=== PATIENT | female | born 1950 | race Two or more races ===

== ENCOUNTER 2017-09-16 09:08 | Day surgery (SDC) | payer OTHER ==
[2017-09-15 10:46] VITALS: BMI 36.8
[~2017-09-16 09:08] MED LIST: ACETAMINOPHEN 325 MG TABLET (FP) PO PRN
[2017-09-16] MEDS ORDERED: CYCLOPENTOLATE HCL 1% OPHTH SOLN 2 ML BOTTLE ONE (09:26)
[2017-09-16] MEDS ORDERED: OFLOXACIN 0.3% OPHTHALMIC SOLUTION 5 ML BOTTLE ONE (09:26)
[2017-09-16] MEDS ORDERED: PHENYLEPHRINE 2.5% OPHTH SOLN 15 ML BOTTLE ONE (09:26)
[2017-09-16] MEDS ORDERED: FLURBIPROFEN 0.03% OPHTH SOLN 2.5 ML BOTTLE ONE (09:26)
[2017-09-16] MEDS ORDERED: TROPICAMIDE 1% OPHTH SOLN 15 ML BOTTLE ONE (09:26)
[2017-09-16] MEDS: TROPICAMIDE 1% OPHTH SOLN 15 ML BOTTLE OP SCH ×3 (09:50→10:01)
[2017-09-16] MEDS: FLURBIPROFEN 0.03% OPHTH SOLN 2.5 ML BOTTLE OP SCH ×3 (09:50→10:02)
[2017-09-16] MEDS: PHENYLEPHRINE 2.5% OPHTH SOLN 15 ML BOTTLE OP SCH ×3 (09:50→10:02)
[2017-09-16] MEDS: CYCLOPENTOLATE HCL 1% OPHTH SOLN 2 ML BOTTLE OP SCH ×3 (09:50→10:02)
[2017-09-16] MEDS: OFLOXACIN 0.3% OPHTHALMIC SOLUTION 5 ML BOTTLE OP SCH ×3 (09:50→10:02)
[2017-09-16] MEDS ORDERED: LIDOCAINE HCL/PF 1% SDV 5ML VIAL ONE (11:14)
[2017-09-16] MEDS ORDERED: EPINEPHrine/PF 1 MG/1 ML (1:1,000) AMPULE ONE (11:14)
[2017-09-16] MEDS ORDERED: TETRACAINE 0.5% OPHTH SOLN 2 ML BOTTLE ONE (11:14)
[2017-09-16] MEDS ORDERED: MIDAZOLAM HCL 2 MG/2 ML SINGLE DOSE VIAL ONE (11:37)
[2017-09-16] MEDS ORDERED: TETRACAINE 0.5% OPHTH SOLN 2 ML BOTTLE TP ONE (12:00)
[2017-09-16] MEDS ORDERED: LIDOCAINE HCL 1% PRESERVATIVE FREE - 30ML VIAL IO ONE (12:09)
[2017-09-16] MEDS ORDERED: CHONDROITIN SU A/HYALUR SOD 1 KIT IO ONE (12:10)
[2017-09-16] MEDS ORDERED: TRYPAN BLUE 0.5 ML DISP.SYRIN IO ONE (12:12)
[2017-09-16] MEDS ORDERED: TRYPAN BLUE 0.5 ML DISP.SYRIN ONE (12:20)
[2017-09-16] MEDS ORDERED: EPINEPHrine/PF 1 MG/1 ML (1:1,000) AMPULE SQ ONE (12:20)
[2017-09-16] MEDS ORDERED: CHONDROITIN SU A/HYALUR SOD 1 KIT ONE (12:20)
[2017-09-16 13:29] VITALS: BP 126/66; PULSE 67; TEMP 97.7
--- NOTE | 2017-09-16 13:56 | SPEC ---
DATE OF OPERATION: DATE OF DICTATION: 09/16/2017 PREOPERATIVE DIAGNOSIS: Cataract, right eye. POSTOPERATIVE DIAGNOSIS: Cataract, right eye. PROCEDURE: Phacoemulsification of right cataract with capsular staining with Trypan blue and posterior chamber intraocular lens implantation, lens used [id number], 23.5-diopter power, serial number [id number]. SURGEON: Joaquin English MD ANESTHESIA: Topical, MAC. COMPLICATIONS: None. PROCEDURE: The patient was brought to the operating room and correctly identified along with the operative site as well as correct intraocular lens kebede. The patient was then prepped and draped in the usual sterile fashion including 5% Betadine solution in the conjunctival sac and an eyelid drape. An eyelid speculum was then placed into the operative eye. The eye was inspected and a poor red reflex was noted. A paracentesis port was created and 0.5 mL of intracameral preservative-free lidocaine 1% was given. Beneath an air bubble, the capsule was then stained with Trypan blue. The Trypan blue was then irrigated from the eye with balanced salt solution (BBS). Viscoelastic was injected to inflate the anterior chamber. A temporal clear corneal would was created. A continuous circular capsulorrhexis was performed. The nucleus was then hydrodissected and hydrodelineated was BSS and removed with phacoemulsification via [id number]-[id number]-[id number] approach. The remaining cortical material was irrigated and aspirated from the eye. Viscoelastic was injected in the anterior chamber to inflate the capsular bag. The intraocular lens was then injected into the bag. The viscoelastic was irrigated and aspirated from the eye. All wounds were tested and found to be watertight. No suture was placed. The intraocular lens was noted to be well centered and covered by the anterior capsular border. Topical vancomycin was given. The eye was patched and shielded. The patient was discharged from the operating room in stable condition. JOAQUIN ENGLISH M.D. [id number]
== END 2017-09-16 13:44 | disposition home or self-care (01) ==
LOC: JASU-SURG 09:08
PROVIDERS: ATTEND Ophthalmology
PROC: 08RJ3JZ Replacement of Right Lens with Synthetic Substitute, Percutaneous Approach (ICD-10-PCS; principal; 2017-09-16 11:00)
DX: H26.9 Unspecified cataract (principal)
CPT/HCPCS: 82962

== ENCOUNTER 2017-10-14 08:33 | Day surgery (SDC) | payer OTHER ==
[2017-10-09 10:35] VITALS: BMI 36.8
[~2017-10-14 08:33] MED LIST changes: +FLURBIPROFEN 0.03% OPHTH SOLN 2.5 ML BOTTLE OP SCH
[2017-10-14] MEDS ORDERED: CYCLOPENTOLATE HCL 1% OPHTH SOLN 2 ML BOTTLE ONE (09:04)
[2017-10-14] MEDS ORDERED: OFLOXACIN 0.3% OPHTHALMIC SOLUTION 5 ML BOTTLE ONE (09:04)
[2017-10-14] MEDS ORDERED: PHENYLEPHRINE 2.5% OPHTH SOLN 15 ML BOTTLE ONE (09:04)
[2017-10-14] MEDS ORDERED: TROPICAMIDE 1% OPHTH SOLN 15 ML BOTTLE ONE (09:05)
[2017-10-14 09:06] VITALS: TEMP 98.1
[2017-10-14] MEDS: TROPICAMIDE 1% OPHTH SOLN 15 ML BOTTLE OP SCH ×3 (09:30→09:40)
[2017-10-14] MEDS: CYCLOPENTOLATE HCL 1% OPHTH SOLN 2 ML BOTTLE OP SCH ×3 (09:30→09:40)
[2017-10-14] MEDS: PHENYLEPHRINE 2.5% OPHTH SOLN 15 ML BOTTLE OP SCH ×3 (09:30→09:40)
[2017-10-14] MEDS: OFLOXACIN 0.3% OPHTHALMIC SOLUTION 5 ML BOTTLE OP SCH ×3 (09:30→09:40)
[2017-10-14] MEDS ORDERED: MIDAZOLAM HCL 2 MG/2 ML SINGLE DOSE VIAL ONE ×2 (10:11→10:41)
[2017-10-14] MEDS ORDERED: BUPIVACAINE HCL/PF 0.75% 10 ML VIAL RB ONE (10:42)
[2017-10-14] MEDS ORDERED: LIDOCAINE HCL/PF 2% SDV 5ML VIAL INF ONE (10:42)
[2017-10-14] MEDS ORDERED: POVIDONE-IODINE 5% OPHTHALMIC PREP 30 ML SOLUTION OS ONE (10:46)
[2017-10-14] MEDS ORDERED: BSS (NA/CA/MG/K) BALANCED SALT SOLUTION OPHTH SOLN 15 ML BOTTLE OS ONE (10:55)
[2017-10-14] MEDS ORDERED: CHONDROITIN SU A/HYALUR SOD 1 KIT IO ONE (10:55)
[2017-10-14] MEDS ORDERED: LIDOCAINE HCL 1% PRESERVATIVE FREE - 30ML VIAL IO ONE (10:55)
[2017-10-14] MEDS ORDERED: EPINEPHrine/PF 1 MG/1 ML (1:1,000) AMPULE SQ ONE (11:00)
--- NOTE | 2017-10-14 12:09 | SPEC ---
DATE OF OPERATION: DATE OF DICTATION: 10/14/2017 OPERATION: Phacoemulsification with posterior chamber intraocular lens implantation, left eye. Lens used SN60WF, 24.0 diopter power, serial no. [id number]. PREOPERATIVE DIAGNOSIS: Cataract, left eye. POSTOPERATIVE DIAGNOSIS: Cataract, left eye. SURGEON: Doug Galloway M.D. ANESTHESIA: Peribulbar/modified van Lint/MAC. COMPLICATIONS: None. PROCEDURE: The patient was brought to the operating room and correctly identified along with the operative site and a correct intraocular lens kebede. The patient was then given a peribulbar block under sedation with 5 mL of a 1:1 mixture of 2% lidocaine and 0.5% bupivacaine. Two to 3 mL of the same mixture was given as a modified Van Lint block. The eye was then prepped and draped in the usual sterile fashion including 5% Betadine solution in the conjunctival sac and an eyelid drape. An eyelid speculum was then placed into the eye. A paracentesis port was created. Viscoelastic was injected to inflate the anterior chamber. A temporal clear corneal wound was created. A continuous circular capsulorrhexis was performed. The nucleus was then hydro-dissected and removed with phacoemulsification via the [id number] approach. The remaining cortical material was irrigated and aspirated from the eye. Viscoelastic was injected to inflate the capsular bag. The lens was injected into the capsular bag. Viscoelastic was then irrigated and aspirated from the eye. The intraocular lens was noted to be well centered and covered by the anterior capsular border. All wounds were found to be watertight. Topical vancomycin was given. The eye patch and shield were placed. The patient was discharged from the operating room in stable condition. Celestino [id number]
[2017-10-14] MEDS ORDERED: CHONDROITIN SU A/HYALUR SOD 1 KIT ONE (12:46)
[2017-10-14 12:49] VITALS: BP 127/52; PULSE 72
== END 2017-10-14 12:30 | disposition home or self-care (01) ==
LOC: JASU-SURG 08:33
PROVIDERS: ATTEND Ophthalmology
PROC: 08RK3JZ Replacement of Left Lens with Synthetic Substitute, Percutaneous Approach (ICD-10-PCS; principal; 2017-10-14 10:00)
DX: H26.9 Unspecified cataract (principal)
CPT/HCPCS: 82962